=== PATIENT | female | born 1980 | race Two or more races ===

== ENCOUNTER 2016-03-11 08:25 | Emergency (ER) | payer SELFPAY ==
[~2016-03-11] VITALS: Ht 149.9 cm; Wt 44.5 kg
[2016-03-11] MEDS ORDERED: CIPROFLOXACIN500 M2 ORAL (09:02)
[2016-03-11] MEDS ORDERED: METHOCARBAMOL500 MG ORAL (09:02)
[2016-03-11] MEDS ORDERED: NAPROXEN500 M2 ORAL (09:02)
[2016-03-11 09:20] VITALS: BP 125/87
[2016-03-11] MEDS ORDERED: BACITRACIN15 GM TOPIC (09:28)
[2016-03-11] MEDS ORDERED: TYLENOL325 MG ORAL (09:28)
[2016-03-11] MEDS ORDERED: Bacitracin Oint UD TOPIC ONE (09:30)
[2016-03-11 09:55] VITALS: BP 125/87
--- NOTE | 2016-03-11 13:29 | Emergency Room Report ---
History of Present Illness General Chief Complaint: Nosebleed Source: Patient Present Illness HPI Patient presents with a nosebleed on the left-hand side. It started about half an hour before coming in. She packed her nose and it stopped bleeding. 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 She denies any other bleeding problems at this time. She denies fevers and headache. She also is not vomiting and doesn't feel nausea. There was not a lot of blood lost. Taking naprosyn for body pain. Denies pain at this time. Allergies: Coded Allergies: No Known Allergies (Unverified , 03/11/16) Patient History Past Medical History: see triage record Social History: Reports: drug use Social History Narrative In rehabilitation Last Menstrual Period: last week Now: No Reviewed Nursing Documentation: PMH: Agreed, PSxH: Agreed Nursing Documentation-PMH Past Medical History: No History, Except For History Of Psychiatric Problem: Yes - substance abuse Review of Systems Constitutional: Reports: see HPI ENT: Reports: see HPI Respiratory: Denies: shortness of breath Cardiovascular: Denies: chest pain Gastrointestinal: Reports: see HPI Neurological: Reports: see HPI Hematologic/Lymphatic: Reports: see HPI Physical Exam Vital Signs Date Time Temp Pulse Resp B/P Pulse Ox O2 Delivery O2 Flow Rate FiO2 03/11/16 08:55 98.1 99 18 125/87 98 Room Air Sp02 EP Interpretation: reviewed, normal General Appearance: well appearing, no apparent distress Head: normocephalic, atraumatic Eyes: bilateral eye PERRL, bilateral eye normal inspection ENT: hearing grossly normal, normal voice, other - ulceration L septum. No active bleeding Neck: full range of motion, supple Respiratory: no respiratory distress, speaking full sentences Cardiovascular #2: 2+ radial (R) Gastrointestinal: scaphoid Musculoskeletal: digits/nails normal, gait/station normal Neurologic: alert, normal gait, grossly normal Psychiatric: mood/affect normal Skin: no rash Medical Decision Making Diagnostic Impression: Primary Impression: Epistaxis ER Course Patient presents with anterior epistaxis which is controlled at this time. Septal ulceration. Hemodynamically stable and no evidence of coagulopathy. Taking naprosyn, but doubt major contributor. Discussed treatment options with patient including cautery. Elected to observe as bleeding controlled. Patient stable for outpatient observation and treatment. Last Vital Signs Date Time Temp Pulse Resp B/P Pulse Ox O2 Delivery O2 Flow Rate FiO2 03/11/16 09:55 98.1 99 18 125/87 98 Room Air Disposition: HOME, SELF-CARE Condition: Improved Scripts Bacitracin (Bacitracin) 28.4 Gm Oint...g. 1 APPLIC TOPIC BID, #14 GM Prov: Ty Daniel M.D. 03/11/16 Acetaminophen (Tylenol) 325 Mg Tablet 650 MG ORAL Q6H Y for Prn Pain/Headache/Temp > 101, #20 TAB 0 Refills Prov: Ty Daniel M.D. 03/11/16 Referrals: NOT CHOSEN IPA/,REFERRING (PCP) Patient Instructions: Nosebleed Additional Instructions: Return if the bleeding does not stop. Try to use tylenol. Ty Daniel M.D. Mar 11, 2016 13:29
== END 2016-03-11 09:55 | disposition home or self-care (01) ==
LOC: EMR 09:28
DX: R04.0 Epistaxis (principal); F15.10 Other stimulant abuse, uncomplicated
CPT/HCPCS: 99284